=== PATIENT | female | born 1945 | race Caucasian/White ===

== ENCOUNTER 2021-09-03 12:11 | Inpatient (IN) | payer OTHER ==
[~2021-09-03] VITALS: Ht 149.9 cm; Wt 78.9 kg
[~2021-09-03 12:11] MED LIST: LISINOPRIL10 MG PO; NORCO 5-325 TA1 EACH PO; NORFLEX100 MG PO
[2021-09-03 12:31] VITALS: BP 115/68
[2021-09-03] MEDS ORDERED: MELOXICAM15 MG PO (12:38)
[2021-09-03] MEDS ORDERED: METFORMIN HCL500 MG PO (12:38)
[2021-09-03] MEDS ORDERED: COZAAR 25 MG TA25 MG PO (12:39)
[2021-09-03] MEDS ORDERED: VAZALORE81 MG PO (12:39)
[2021-09-03] MEDS ORDERED: MAGNESIUM400 M1 PO (12:40)
[2021-09-03] MEDS ORDERED: IRON18 M1 PO (12:40)
[2021-09-03] MEDS ORDERED: CALCIUM500 MG PO (12:40)
[2021-09-03] MEDS ORDERED: BIOTIN10000 MC1 PO (12:41)
[2021-09-03] MEDS ORDERED: FISH OIL 1,0001 EAC9 PO (12:41)
[2021-09-03 12:55] LABS: ABSOLUTE NEUTROPHILS 8.3 thou/uL (1.4-8.2); BASOPHILS 0.4 % (0.0-2.0); EOSINOPHILS 1.2 % (0.0-3.0); HEMOGLOBIN 11.3 gm/dL (12.0-15.0); LYMPHOCYTES 19.8 % (24.0-44.0); MCH 31.5 pg (26.0-34.0); MCHC 33.4 g/dL (28.0-37.0); MCV 94.5 fL (80.0-100.0); PLATELET COUNT 484 thou/uL (150-400); POLYS 71.6 % (36.0-66.0); RBC 3.59 mil/uL (4.20-5.00); WBC 11.6 thou/uL (4.0-11.0)
[2021-09-03 13:06] LABS: CALCIUM 9.3 mg/dL (8.5-10.1); CREATININE 2.3 mg/dL (0.6-1.0); POTASSIUM 3.6 mmol/L (3.5-5.1)
[2021-09-03 13:11] LABS: ALBUMIN 2.6 g/dL (3.4-5.0); TOTAL BILIRUBIN 0.6 mg/dL (0.2-1.0); TOTAL PROTEIN 7.8 g/dL (6.4-8.2)
[2021-09-03 16:28] LABS: % SATURATION 20 % (20-39); IRON 57 ug/dL (50-170); TIBC 283 ug/dL (250-450)
[2021-09-03 18:03] LABS: FOLIC ACID 56.7 ng/mL (8.6-58.9)
[2021-09-03 19:53] VITALS: BP 137/72
--- NOTE | 2021-09-03 23:18 | NUR ---
PT ALERT AND ORIENTED X4. VSS AFEBRILE. SAT 93% ON 3LNC. PTIS INCONTINENT OF DIARRHEA X3 SO FAR TONIGHT. HELD MIRALAX. ZGARD APPLIED TO BOTTOM. C/O LLE PAIN. MEDICATED WITH TYLENOL. PT SLEEPING PRESENTLY. NO C/O PAIN. BED DOWN CALL LIGHT IN REACH, INSTRUCTED PT ON FALL PRECAUTIONS.
[2021-09-04] VITALS: BP 130/52
[2021-09-04 04:17] LABS: ABSOLUTE NEUTROPHILS 5.5 thou/uL (1.4-8.2); BASOPHILS 1.2 % (0.0-2.0); HEMATOCRIT 28.8 % (37.0-47.0); HEMOGLOBIN 9.8 gm/dL (12.0-15.0); LYMPHOCYTES 21.4 % (24.0-44.0); MCH 32.7 pg (26.0-34.0); MCHC 34.1 g/dL (28.0-37.0); MCV 95.8 fL (80.0-100.0); MONOCYTES 6.3 % (1.0-8.0); PLATELET COUNT 429 thou/uL (150-400); POLYS 71.1 % (36.0-66.0); RBC 3.01 mil/uL (4.20-5.00); RDW 13.6 % (10.5-14.5); WBC 7.7 thou/uL (4.0-11.0)
[2021-09-04 04:32] LABS: CALCIUM 8.6 mg/dL (8.5-10.1); CREATININE 2.4 mg/dL (0.6-1.0); MAGNESIUM 2.7 mg/dL (1.8-2.4); POTASSIUM 4.4 mmol/L (3.5-5.1)
[2021-09-04 05:00] VITALS: BP 106/47
[2021-09-04 07:20] VITALS: BP 136/59
[2021-09-04 16:25] VITALS: BP 141/60
--- NOTE | 2021-09-04 17:57 | NUR ---
PT ALERT AND ORIENTED X 4. PT SPOKE WITH THIS RN ABOUT CONCERNS WITH COVID MEDICATIONS, THIS RN ALSO SPOKE WITH AND EDUCATED FAMILY VIA TELEPHONE. PT DENIES PAIN AND ANY NEEDS AT THIS MOMENT. WILL CONTINUE TO MONITOR.
[2021-09-04 19:49] VITALS: BP 152/69
--- NOTE | 2021-09-04 23:00 | NUR ---
PT PROGRESSING SLOWLY TOWARDS D/V GOALS. VSS AFEBRILE. MEDICATED WITH TYLENOL FOR PAIN TO LLE FROM PREVIOUS BACK ISSUES CAUSING SCIATIC NERVE PAIN PT STATES. PT IS NOW SLEEPING QUIETLY. NO S/S DISTRESSON 3LNC.
[2021-09-05 04:30] VITALS: BP 153/62
[2021-09-05 05:45] LABS: ABSOLUTE NEUTROPHILS 10.8 thou/uL (1.4-8.2); BASOPHILS 1.1 % (0.0-2.0); HEMATOCRIT 26.8 % (37.0-47.0); HEMOGLOBIN 9.1 gm/dL (12.0-15.0); LYMPHOCYTES 14.5 % (24.0-44.0); MCH 32.1 pg (26.0-34.0); MCHC 33.8 g/dL (28.0-37.0); MONOCYTES 6.3 % (1.0-8.0); PLATELET COUNT 448 thou/uL (150-400); POLYS 78.1 % (36.0-66.0); RBC 2.82 mil/uL (4.20-5.00); RDW 13.5 % (10.5-14.5); WBC 13.8 thou/uL (4.0-11.0)
--- NOTE | 2021-09-05 05:47 | NUR ---
PT PROGRESSING SLOWLY TOWARDS D/C GOALS. VSS. AFEBRILE THIS AM. NO S/S SOA. LUNG SOUNDS STILL DIMINISHED. ENC T,C&DB, SPUTUM SAMPLE SENT TO LAB. MRSA AND URINE CX SENT TO LAB. NO DIARRHEA TONIGHT.
[2021-09-05 05:52] LABS: INR 0.96; PROTIME 10.5 Seconds (10.5-12.1)
[2021-09-05 06:13] LABS: ANION GAP 13 mmol/L (7-16); BUN 45 mg/dL (7-18); CALCIUM 8.6 mg/dL (8.5-10.1); CHLORIDE 110 mmol/L (98-107); CO2 20 mmol/L (21-32); CREATININE 2.1 mg/dL (0.6-1.0); DIRECT BILIRUBIN < 0.1 mg/dL (<0.1-0.2); GLUCOSE 220 mg/dL (74-106); POTASSIUM 4.5 mmol/L (3.5-5.1); SGOT 22 U/L (15-37); SGPT 22 U/L (30-65); SODIUM 143 mmol/L (136-145); TOTAL BILIRUBIN 0.2 mg/dL (0.2-1.0); TOTAL PROTEIN 6.2 g/dL (6.4-8.2)
[2021-09-05 08:04] VITALS: BP 140/61
[2021-09-05 11:34] VITALS: BP 134/64
--- NOTE | 2021-09-05 14:26 | HC ---
[facility] [place] [address] CONSULTATION Name: DARRELL BRITO Room #: 353-P ADM IN M.R.#: [id number] Admission: 09/03/21 Attend Phys: Heriberto Ray MD Discharge: Date of : 49 Report #: [id number] THIS REPORT FOR: cc: Heriberto Garcia MD,Michael Mcgowan MD ~ DATE OF SERVICE: 09/04/2021 INFECTIOUS DISEASES CONSULTATION REASON FOR CONSULTATION: I was asked to evaluate concerning COVID-19 pneumonia. HISTORY OF PRESENT ILLNESS: The patient is a 76-year-old, presents to the Emergency Room after about 10-12 days of respiratory complaints, starting with a nonproductive cough, mild headache and progressive shortness of breath. COVID testing at home was positive. She was given Augmentin in the outpatient setting. Continued to have progressive shortness of breath, purulent sputum production without hemoptysis or chest pain. Mild headache with loss of taste and smell. Nausea with diarrhea. No abdominal pain, rash, or arthritis. No myositis symptoms. Presented to the Emergency Room, hypoxic, now on 4 liters of oxygen per nasal cannula. REVIEW OF SYSTEMS: A 14-point review of system was negative other than what has been described above. The patient denies any previous history of pneumonia, tuberculosis, HIV. SOCIAL HISTORY: She lives alone. She drives a school bus. PAST MEDICAL HISTORY: Hypertension, diabetes, sciatica, tonsillectomy, bladder suspension surgery. ALLERGIES: None known. MEDICATIONS: As noted on her MAR, which were reviewed. FAMILY HISTORY: Negative for tuberculosis. SOCIAL HISTORY: Nonsmoker, no significant alcohol intake. PHYSICAL EXAMINATION: GENERAL: Afebrile and hemodynamically stable. Alert and cooperative. She is on 4 liters of oxygen per nasal cannula. She was sitting up in bed. She had just recently walked to the bathroom. SKIN: Without rash or decubitus. No palpable adenopathy. [facility] [address] [place] [address] CONSULTATION Name: DARRELL BRITO Room #: 353-P [facility] IN ..#: [id number] Admission: 09/03/21 Attend Phys: Heriberto Ray MD Discharge: Date of : 49 Report #: [id number] HEENT: Eyes without scleral icterus. Mouth without mucositis. NECK: Supple with no thyromegaly or mass. No palpable adenopathy. LUNGS: Crackles in the bases bilaterally. HEART: Regular, without murmur, gallop or rub. ABDOMEN: Soft and nontender with no hepatosplenomegaly or mass. No CVA tenderness or spinal tenderness. GENITAL AND RECTAL: Exam not performed. EXTREMITIES: Without clubbing, cyanosis or edema. NEUROLOGIC: Cranial nerves intact and strength in the upper and lower extremities was symmetric and within normal limits. PSYCHIATRIC: Mood without anxiety or depression. IMPRESSION: COVID-19 pneumonia with SARS and respiratory failure, now on 4 liters of oxygen per nasal cannula. Chest x-ray shows bilateral pulmonary infiltrates. She does have elevated D-dimer and is now on anticoagulation. Comorbidities include obesity, hypertension, and diabetes. She has had purulent sputum production and may have a component of bacterial infection in addition to the COVID-19. RECOMMENDATIONS: We will continue combination of therapy with corticosteroids and antiviral therapy along with antibiotics. Obtain cultures of sputum along with urine antigens. If the patient should worsen, I discussed with her the use of Actemra. She was agreeable with this plan of care. The patient will remain on the COVID isolation unit for cardiopulmonary monitoring. We will follow serial laboratory studies in that her creatinine was 2.3. We will watch this closely along with her liver function tests as we begin remdesivir. If her creatinine shows evidence of worsening or her liver function tests increase, we will then have to adjust her program. <ELECTRONICALLY SIGNED> By: Michael Meyer MD 09/05/21 1426 [id number] Michael Meyer MD /nt
[2021-09-05 15:19] VITALS: BP 152/69
[2021-09-05 20:25] VITALS: BP 140/61
--- NOTE | 2021-09-06 00:50 | NUR ---
PT ALERT X4. VSS AFEBRILE. MEDICATED FOR LLE SCIATIC PAIN. PT FELL ASLEEP. RESPIRATIONS UNLABORED ON 3LNC. IV ABX INFUSED ORDERED. WILL CONTINUE TO MONITOR PT FOR CHANGES.
[2021-09-06 04:00] VITALS: BP 141/63
[2021-09-06 04:01] VITALS: BP 155/71
--- NOTE | 2021-09-06 04:06 | NUR ---
DISCONTINUED D51/2 NS ORDERED. D5W INFUSING AT 50 FOR 500 ML ORDERED. PRE VOID SCAN 44 , ACTUAL PT VOID 100 ML. POST VOID SCAN 0. AT 0340 THIS AM. NO C/O PAIN PRESENTLY. SA-SB ON MONITOR 40S-50S.
[2021-09-06 05:08] LABS: ANION GAP 11 mmol/L (7-16); BUN 40 mg/dL (7-18); CALCIUM 8.6 mg/dL (8.5-10.1); CHLORIDE 111 mmol/L (98-107); CO2 21 mmol/L (21-32); CREATININE 1.8 mg/dL (0.6-1.0); DIRECT BILIRUBIN < 0.1 mg/dL (<0.1-0.2); GLUCOSE 214 mg/dL (74-106); PHOSPHORUS 3.8 mg/dL (2.5-4.9); POTASSIUM 4.4 mmol/L (3.5-5.1); SGOT 19 U/L (15-37); SGPT 21 U/L (30-65); SODIUM 143 mmol/L (136-145); TOTAL BILIRUBIN 0.2 mg/dL (0.2-1.0)
[2021-09-06 05:39] LABS: HEMATOCRIT 26.8 % (37.0-47.0); HEMOGLOBIN 9.3 gm/dL (12.0-15.0); MCHC 34.8 g/dL (28.0-37.0); MCV 94.7 fL (80.0-100.0); PLATELET COUNT 472 thou/uL (150-400); RBC 2.83 mil/uL (4.20-5.00); RDW 13.6 % (10.5-14.5); WBC 12.7 thou/uL (4.0-11.0)
[2021-09-06 06:08] LABS: MAGNESIUM 2.3 mg/dL (1.8-2.4); PHOSPHORUS 4.1 mg/dL (2.5-4.9)
[2021-09-06 06:41] LABS: URINE BILIRUBIN NEGATIVE (Negative); URINE BLOOD NEGATIVE (Negative); URINE CLARITY CLEAR; URINE COLOR YELLOW; URINE GLUCOSE-RANDOM* TRACE (Negative); URINE KETONES NEGATIVE (Negative); URINE LEUKOCYTES-REFLEX NEGATIVE (Negative); URINE NITRITE-REFLEX NEGATIVE (Negative); URINE PROTEIN (DIPSTICK) TRACE (Negative); URINE UROBILINOGEN 0.2 E.U./dl (0.2-1.0)
[2021-09-06 07:31] VITALS: BP 156/63
[2021-09-06 08:06] LABS: HIV ANTIBODY Non Reactive (Non Reactive)
[2021-09-06 11:24] VITALS: BP 153/78
[2021-09-06 13:10] LABS: ABSOLUTE NEUTROPHILS 10.3 thou/uL (1.4-8.2); METAMYELOCYTES 1 %; MYELOCYTES 1 %
[2021-09-06 13:11] LABS: ANISOCYTOSIS SLIGHT
[2021-09-06 16:36] VITALS: BP 139/65
--- NOTE | 2021-09-06 18:44 | NUR ---
PROGRESSING TOWARDS POC GOALS. AMBULATED IN ROOM.
[2021-09-06 20:45] VITALS: BP 154/72
[2021-09-07] VITALS: BP 161/69
[2021-09-07 03:25] LABS: HEMATOCRIT 27.7 % (37.0-47.0); HEMOGLOBIN 9.6 gm/dL (12.0-15.0); MCH 32.6 pg (26.0-34.0); MCHC 34.7 g/dL (28.0-37.0); MCV 93.9 fL (80.0-100.0); PLATELET COUNT 501 thou/uL (150-400); RBC 2.95 mil/uL (4.20-5.00); RDW 13.4 % (10.5-14.5); WBC 13.6 thou/uL (4.0-11.0)
[2021-09-07 04:36] VITALS: BP 146/64
[2021-09-07 04:40] LABS: ANION GAP 12 mmol/L (7-16); BUN 36 mg/dL (7-18); CALCIUM 8.4 mg/dL (8.5-10.1); CHLORIDE 108 mmol/L (98-107); CO2 21 mmol/L (21-32); CREATININE 1.6 mg/dL (0.6-1.0); DIRECT BILIRUBIN < 0.1 mg/dL (<0.1-0.2); GLUCOSE 223 mg/dL (74-106); PHOSPHORUS 3.6 mg/dL (2.5-4.9); POTASSIUM 4.4 mmol/L (3.5-5.1); SGOT 28 U/L (15-37); SGPT 27 U/L (30-65); SODIUM 141 mmol/L (136-145); TOTAL BILIRUBIN 0.3 mg/dL (0.2-1.0); TOTAL PROTEIN 5.9 g/dL (6.4-8.2)
[2021-09-07 07:40] VITALS: BP 156/60
[2021-09-07 10:11] LABS: ABSOLUTE NEUTROPHILS 11.3 thou/uL (1.4-8.2); ATYPICAL LYMPHS 2 %
[2021-09-07 10:14] LABS: ANISOCYTOSIS SLIGHT; POIKILOCYTOSIS SLIGHT
[2021-09-07 10:55] VITALS: BP 160/69
[2021-09-07 15:05] VITALS: BP 152/73
--- NOTE | 2021-09-07 15:16 | NUR ---
INITIAL ASSESSMENT: SW reviewed chart and spoke with nursing and attending physician. Pt was admitted from home due to COVID. Pt placed in Enhanced Isolation. Pt had not received a COVID vaccination. Pt is afebrile and on 3L of O2. Pt is on IV abx and IV steorids. Remdesivir started. Discharge home is anticipated later in the week. SW spoke with pt via phone. Introduced role of SW. Pt is alert/orientated. Pt states she lives at home alone. There are 2 steps to enter and no steps inside. Prior to admission, pt was using a walker. No hx of HH or post-acute placement. Pt's PCP is Dr. Heriberto Garcia. Pt is agreeable with HH and/or home O2 if needed. SW is following to assist as needed with discharge planning.
[2021-09-07 19:21] VITALS: BP 149/83
--- NOTE | 2021-09-07 19:31 | NUR ---
RN ASSUMED PT'S CARE AT 0700AM-1900PM, PT IS A&OX4, PT IS ON O2 4L/MIN/NC, PT'S O2SAT STAY AT 93-96%, PT HAS SOB WITH ACITIVES, PT IS CONTINUING IV ABX AND TREAT COVID MEDICATIONS.
[2021-09-08 04:29] VITALS: BP 156/62
--- NOTE | 2021-09-08 04:37 | NUR ---
PROGRESS PT A/O X4. UP WITH SBA TO BSC. ON 4 LITERS O2 SATS. REMDESIVIR ADMINISTERED ORDERED. IV LEAKING AND NEW ONE STARTED IN RIGHT HAND. LUNGS WITH SOME COARSE CRACKLES IN RLL REMAINING LUNG ARTHUR ARE DIMINISHED PT REPORTS A MORE PRODUCTIVE COUGH. SPOKE WITH DAUGHTER AND PT AND REVIEWED MEDS AND LABS AND WHAT TO EXPECT THROUGH THIS HOSPITAL STAY, BOTH R/V UNDERSTANDING. CONTINUE POC.
[2021-09-08 06:36] LABS: HEMATOCRIT 30.7 % (37.0-47.0); HEMOGLOBIN 10.4 gm/dL (12.0-15.0); MCH 31.8 pg (26.0-34.0); MCHC 33.9 g/dL (28.0-37.0); MCV 93.7 fL (80.0-100.0); PLATELET COUNT 539 thou/uL (150-400); RBC 3.28 mil/uL (4.20-5.00); RDW 13.5 % (10.5-14.5); WBC 14.3 thou/uL (4.0-11.0)
[2021-09-08 07:07] LABS: ALBUMIN 2.2 g/dL (3.4-5.0); ANION GAP 10 mmol/L (7-16); BUN 41 mg/dL (7-18); CHLORIDE 108 mmol/L (98-107); CO2 26 mmol/L (21-32); CREATININE 1.8 mg/dL (0.6-1.0); DIRECT BILIRUBIN < 0.1 mg/dL (<0.1-0.2); GLUCOSE 192 mg/dL (74-106); PHOSPHORUS 3.8 mg/dL (2.5-4.9); POTASSIUM 4.9 mmol/L (3.5-5.1); SGOT 20 U/L (15-37); SGPT 35 U/L (30-65); SODIUM 144 mmol/L (136-145); TOTAL BILIRUBIN 0.3 mg/dL (0.2-1.0); TOTAL PROTEIN 6.5 g/dL (6.4-8.2)
[2021-09-08 08:08] VITALS: BP 150/80
[2021-09-08 11:12] VITALS: BP 144/63
[2021-09-08 11:23] LABS: ANISOCYTOSIS 1+; METAMYELOCYTES 1 %
[2021-09-08 13:00] LABS: T-SPOT.TB Negative
[2021-09-08 15:19] VITALS: BP 147/81
[2021-09-08 19:50] VITALS: BP 133/78
--- NOTE | 2021-09-08 19:51 | NUR ---
RN ASSUMED PT'S CARE AT 0700-1900PM, PT IS A&OX4, PT IS ON O2 4L/MIN/NC, PT'S VS ARE STABLE AT DAY SHIFT, BUT PT STILL HAS SOB WITH ACTIVITIES, PT IS CONTINUING IV ABX AND TREAT COVID MEDICATIONS.
[2021-09-09 04:00] VITALS: BP 130/71
[2021-09-09 06:56] LABS: ALBUMIN 2.4 g/dL (3.4-5.0); ANION GAP 12 mmol/L (7-16); BUN 45 mg/dL (7-18); CALCIUM 8.9 mg/dL (8.5-10.1); CHLORIDE 104 mmol/L (98-107); CO2 26 mmol/L (21-32); CREATININE 1.7 mg/dL (0.6-1.0); DIRECT BILIRUBIN < 0.1 mg/dL (<0.1-0.2); GLUCOSE 201 mg/dL (74-106); PHOSPHORUS 4.4 mg/dL (2.5-4.9); POTASSIUM 4.3 mmol/L (3.5-5.1); SGOT 18 U/L (15-37); SGPT 30 U/L (30-65); SODIUM 142 mmol/L (136-145); TOTAL BILIRUBIN 0.3 mg/dL (0.2-1.0); TOTAL PROTEIN 6.7 g/dL (6.4-8.2)
[2021-09-09 07:35] VITALS: BP 142/78
--- NOTE | 2021-09-09 07:54 | NUR ---
PROGRESS PT A/O X4, UP AD JUSTIN TO BSC. VSS, TELEMETRY INTACT READING SR INTERMITTENT ABT'S GIVEN ORDERED. REMAINS ON 4 LITERS O2 SOB WITH ACTIVITY. 2ND ROUND OF REMDESIVIR TO START TONIGHT CONTINUE TO MONITOR.
[2021-09-09 11:30] VITALS: BP 146/88
--- NOTE | 2021-09-09 12:02 | NUR ---
HARRY reviewed chart and spoke with nursing and attending physician. Pt remains in Enhanced Isolation due to COVID. Pt is afebrile and on 4L of O2. Pt is on IV steroids. Pt has completed course of Remdesivir. HARRY spoke with pt via phone to discuss discharge plan. Pt states she does not feel ready to discharge home today. HARRY discussed recommendation for services and possible home O2 at time of discharge. Pt is agreeable with HH referral. Options provided. No preference voiced. HARRY confirmed pt's home address and phone number. HARRY notified [facility] liaison of referral. Discharge home is anticipated for tomorrow. [facility] is able to accept pt on service. HARRY faxed referral to [facility] for possible home O2. HARRY discussed with attending physician. Requested rest/exercise oximetry to be ordered to assess pt for home O2. Pt will need transportation home. HARRY is following to assist as needed with discharge planning.
[2021-09-09 15:40] VITALS: BP 155/78
--- NOTE | 2021-09-09 19:26 | NUR ---
ASSUMED PATIENT CARE AT 0700. A/O X4. ON 4L/NC. TOLERATED WELL. AMBULATED IN ROOM. RECHECK CXR AND VQ SCAN WHICH NO PE. PATIENT ABLE TO PRONE BY HER SELF. PROGRESSING TOWARDS POC GOALS.
[2021-09-09 20:21] VITALS: BP 133/69
--- NOTE | 2021-09-10 04:10 | NUR ---
PROGRESS PT A/O X4, UP AD JUSTIN TO C. LUNGS DIMINISHED NO COUGH NOTED. REMAINS ON 4 LITERS O2 DESATTED WITH PT/OT TODAY O2 NEEDS WENT UP TO 6 TO 8 LITERS WHILE AMBULATING. REPORTS PAIN TO RIGHT LEG FROM SPINAL STENOSIS HYDROCODONE GIVEN WITH EFFECT.PLAN IS TO INCREASE ACTIVITY, TITRATE O2 TOLERATED. CONTINUE POC.
[2021-09-10 05:09] VITALS: BP 149/48
[2021-09-10 07:42] VITALS: BP 146/86
--- NOTE | 2021-09-10 08:34 | NUR ---
Assess due to length of stay. admitted with COVID+. Hx DM and pt with hyperglycemia, BG >200, likely aggravated further with steroids. Glargine has been added. Also not on carb control diet so will add this. Intake fair to good 50-100%. No wt loss. Likely dc soon, SNF recommendations per chart review. Low nutrition risk.
[2021-09-10 11:30] VITALS: BP 143/68
--- NOTE | 2021-09-10 14:52 | NUR ---
TOOK OVER CARE OF THIS PATIENT AT 0700. PATIENT RESTING IN BED DURING REPORT. PATIENT WEARING 4 L OXYGEN VIA NASAL CANNULA. PATIENT AXOXO4. PATIENT BECOMES SOA WITH EXERTION; PT REPORTED TURNING UP O2 TO 6-[address] AMARO WANTED THIS NURSE TO PAGE DR. HERNANDEZ REGARDING PULMONARY FUNCTIONING AND CARE OF THIS PATIENT. DR. HERNANDEZ REPORTED THAT PATIENT DOESN'T APPEAR TO BE GETTING WORSE AND RESTS COMFORTABLY; HE STATED "IT WILL TAKE TIME." PATIENT COMPLAINT OF PAIN; ADMIN PRN PAIN MEDICATION. WILL CONTINUE TO MONITOR. FALL PRECAUTIONS IN PLACE AND CALL LIGHT KATHYSUAD REACH.
--- NOTE | 2021-09-10 15:08 | NUR ---
SW reviewed chart and spoke with nursing and attending physician. Pt remains in Enhanced Isolation due to COVID. Pt is afebrile and on 4-5L of O2. Pt is on IV steroids. No weekend discharge planned. Pt does not meet admission criteria for [facility]. Recommendation made for pt to consider SNF placement. Will need insurance authorization. HARRY placed calls to pt's room. No answer. SW left in-network SNF with nursing for pt to review. Pt to notify SW of SNF preference. HARRY is following to assist as needed with discharge planning.
[2021-09-10 15:16] VITALS: BP 165/72
[2021-09-10 19:31] VITALS: BP 148/76
--- NOTE | 2021-09-11 03:01 | NUR ---
PT ALERT AND ORIENTED X4. VSS AFEBRILE. C/O BACK PAIN. MEDIATED WITH 1 HYDROCODONE. PT HAS BEEN SLEEPIJN QUIETLY WITHOUT C/O AFTER PAIN MEDS GIVEN. NEW SL PLACED RIGHT FA . DUE TO RIGHT HAND IV INFILTRATED AND WAS PARTIALLY HANGING OUT. PT UNLABORED ON 4LNC. BS DIMINISHED. NO S/S DISTRESS, REMDESIVIR RESUMED ORDERED.
[2021-09-11 04:18] VITALS: BP 144/72
[2021-09-11 06:20] LABS: ABSOLUTE NEUTROPHILS 20.9 thou/uL (1.4-8.2); BASOPHILS 0.6 % (0.0-2.0); HEMATOCRIT 32.2 % (37.0-47.0); HEMOGLOBIN 10.7 gm/dL (12.0-15.0); LYMPHOCYTES 7.2 % (24.0-44.0); MCH 31.1 pg (26.0-34.0); MONOCYTES 4.6 % (1.0-8.0); PLATELET COUNT 546 thou/uL (150-400); POLYS 87.6 % (36.0-66.0); RBC 3.43 mil/uL (4.20-5.00); RDW 13.3 % (10.5-14.5); WBC 23.8 thou/uL (4.0-11.0)
[2021-09-11 06:51] LABS: ALBUMIN 2.5 g/dL (3.4-5.0); CALCIUM 9.2 mg/dL (8.5-10.1); CREATININE 1.6 mg/dL (0.6-1.0); TOTAL BILIRUBIN 0.4 mg/dL (0.2-1.0); TOTAL PROTEIN 5.8 g/dL (6.4-8.2)
[2021-09-11 07:54] VITALS: BP 156/88
[2021-09-11 11:39] VITALS: BP 179/85
[2021-09-11 15:55] VITALS: BP 165/83
--- NOTE | 2021-09-11 18:33 | NUR ---
TITRATED O2 TO 2L/NC. TOLERTAED WELL. PROGRESSING TOWARD POC GOALS.
[2021-09-11 19:46] VITALS: BP 150/84
[2021-09-12 02:14] LABS: URINE BILIRUBIN NEGATIVE (Negative); URINE BLOOD NEGATIVE (Negative); URINE CLARITY CLEAR; URINE COLOR YELLOW; URINE GLUCOSE-RANDOM* NEGATIVE (Negative); URINE KETONES NEGATIVE (Negative); URINE LEUKOCYTES-REFLEX NEGATIVE (Negative); URINE NITRITE-REFLEX NEGATIVE (Negative); URINE PROTEIN (DIPSTICK) NEGATIVE (Negative); URINE SPECIFIC GRAVITY 1.015 (1.005-1.035); URINE UROBILINOGEN 0.2 E.U./dl (0.2-1.0)
[2021-09-12 04:38] VITALS: BP 149/76
[2021-09-12 05:24] LABS: HEMATOCRIT 31.2 % (37.0-47.0); HEMOGLOBIN 10.5 gm/dL (12.0-15.0); MCH 31.7 pg (26.0-34.0); MCHC 33.7 g/dL (28.0-37.0); MCV 94.1 fL (80.0-100.0); RBC 3.32 mil/uL (4.20-5.00); RDW 13.6 % (10.5-14.5); WBC 18.7 thou/uL (4.0-11.0)
[2021-09-12 05:27] LABS: ALBUMIN 2.3 g/dL (3.4-5.0); CALCIUM 9.1 mg/dL (8.5-10.1); CREATININE 1.7 mg/dL (0.6-1.0); POTASSIUM 4.3 mmol/L (3.5-5.1); TOTAL BILIRUBIN 0.4 mg/dL (0.2-1.0); TOTAL PROTEIN 5.9 g/dL (6.4-8.2)
[2021-09-12 05:33] LABS: PLATELET COUNT 455 thou/uL (150-400)
--- NOTE | 2021-09-12 07:43 | NUR ---
Patient making slow progress towards outcome goals. Vital signs and rhythm stable. Up to BSC without difficulty. Oxygenation optimal with 2L/NC. Hydrocodone give for pain with partial relief. UA collected and sent, negative. One time Lasix dose given.
[2021-09-12 07:51] VITALS: BP 164/99
[2021-09-12 08:36] LABS: ABSOLUTE NEUTROPHILS 16.5 thou/uL (1.4-8.2); METAMYELOCYTES 2 %
[2021-09-12 08:37] LABS: ANISOCYTOSIS 1+
[2021-09-12 11:31] VITALS: BP 141/77
[2021-09-12 16:15] VITALS: BP 145/94
--- NOTE | 2021-09-12 18:24 | NUR ---
ON 2L/NC. AMBULATED IN ROOM. PROGRESSING TOWARDS POC GOALS.
[2021-09-12 19:03] VITALS: BP 154/99
[2021-09-13 04:36] VITALS: BP 151/81
--- NOTE | 2021-09-13 05:59 | NUR ---
Patient making some progress towards outcome goals. Vital signs and rhythm stable. Oxygenation optimal with 2L/NC. Increasing activity out of bed, ambulating in room. Up to BR/toilet without difficulty.
[2021-09-13 08:17] VITALS: BP 167/97
--- NOTE | 2021-09-13 12:48 | NUR ---
SPOKE WITH PATIENTS RN, RN STATES THAT PATIENT NOT GOING HOME TODAY, WILL HOLD WALKING OXIMETRY UNTIL CLOSER TO DISCHARGE DATE
[2021-09-13 16:59] VITALS: BP 154/76
--- NOTE | 2021-09-13 17:11 | NUR ---
HARRY reviewed chart and spoke with nursing and attending physician. Pt remains in Enhanced Isolation due to COVID. Pt is afebrile and currently on 6L of O2. Pt is on IV meds. Pt had to be on 10L with therapy earlier today. HARRY spoke with pt via phone to discuss discharge plan. Pt is agreeable with plan to go to post-acute care for continued rehab services. SW reviewed in-network SNF options with pt. Pt states she lives in [place]. Pt asked HARRY to contact her dtr, Nu, to discuss. HARRY spoke with Nu via phone. Emailed in-network SNF list for review. Will need insurance authorization for post-acute placement. HARRY is following to assist as needed with discharge planning.
[2021-09-13 19:50] VITALS: BP 153/96
[2021-09-14 04:20] VITALS: BP 148/88
[2021-09-14 04:20] LABS: ALBUMIN 2.3 g/dL (3.4-5.0); ANION GAP 9 mmol/L (7-16); BUN 59 mg/dL (7-18); CHLORIDE 105 mmol/L (98-107); CO2 25 mmol/L (21-32); CREATININE 1.6 mg/dL (0.6-1.0); DIRECT BILIRUBIN < 0.1 mg/dL (<0.1-0.2); GLUCOSE 129 mg/dL (74-106); PHOSPHORUS 3.8 mg/dL (2.6-4.7); POTASSIUM 4.4 mmol/L (3.5-5.1); SGOT 14 U/L (15-37); SGPT 30 U/L (14-59); SODIUM 139 mmol/L (136-145); TOTAL BILIRUBIN 0.5 mg/dL (0.2-1.0); TOTAL PROTEIN 5.7 g/dL (6.4-8.2)
[2021-09-14 07:49] VITALS: BP 159/79; BP 159/798
--- NOTE | 2021-09-14 08:24 | NUR ---
Pt. stated she slept fair during the night. O2 at 6L at shift change then was able to titrate down to 4L this am around 0600. Cont. on enhanced precaution , afebrile.
[2021-09-14 14:48] LABS: HEMATOCRIT 37.1 % (37.0-47.0); HEMOGLOBIN 12.1 gm/dL (12.0-15.0); MCH 30.9 pg (26.0-34.0); MCHC 32.5 g/dL (28.0-37.0); RBC 3.91 mil/uL (4.20-5.00); RDW 13.9 % (10.5-14.5); WBC 22.2 thou/uL (4.0-11.0)
[2021-09-14 15:01] LABS: APTT 23.8 Seconds (24.5-32.8); INR 1.02; PROTIME 11.1 Seconds (10.5-12.1)
[2021-09-14 15:26] VITALS: BP 155/80
--- NOTE | 2021-09-14 16:33 | NUR ---
HARRY reviewed chart and spoke with nursing and attending physician. Pt remains in Enhanced Isolation due to COVID. PT is afebrile and on 4L of O2. Pt is on IV steroids and Remdesivir. Pt needed 8L with activity. HARRY placed call to pt's room. No answer. HARRY followed up with pt's dtr, Nu, to discuss SNF options. Awaiting input from pt and family regarding SNF preference. Will need insurance auth. HARRY office phone number provided to pt's dtr. Pt may be medically stable for discharge to SNF later in the week. HARRY is following to assist as needed with discharge planning.
--- NOTE | 2021-09-14 16:50 | NUR ---
PATIENT IS ALERT AND ORIENTED X4 THIS SHIFT. SHE HAS DIMINISHED BREATH SOUNDS WHEN LUNGS ARE AUSCULTATED. PATIENT IS ON 4L OF OXYGEN AT THIS TIME. PATIENT THIS SHIFT HAD TO BE BUMPED TO 8L OF OXYGEN WHILE WORKING WITH PHYSICAL THERAPY BUT WAS ABLE TO BE TITRATED BACK DOWN TO 4L'S. PATIENT IS MS/ TELE AND HAS BEEN SINUS RHYTHM THIS SHIFT. PAITENT HAS BEEN CONTINENT OF BOTH BOWEL AND BLADDER THIS SHIFT. PATIENT IS TRANSFERRED WITH ONE ASSIST TO THE COMMODE OR THE RECLINER. PATIENT HAS AN IV IN HER RIGHT FOREARM THAT CURRENTLY HAS HEPARIN RUNNING AT 12.7 ML'S/ HOUR PATIENT HEPARIN BOLUS AT 6.7 ML'S WAS GIVEN PER ORDER. PATIENTS APTT WAS 23.8 AND NEXT APTT IS SCHEDULED FOR 2229. PATIENT WILL CONTINUE TO BE MONITORED.
[2021-09-14 19:31] VITALS: BP 176/96
[2021-09-14 22:26] VITALS: BP 173/77
--- NOTE | 2021-09-15 05:06 | NUR ---
Requested pain med for back pain with some relief. O2 at 4L/NC and maintaining O2 sat > 90% She does get short of breath with exertion. Cont. on enhanced precaution ,afebrile. Heparin gtt. infusing and titrated per standing order. No bleeding noted. New IV on right AC placed last night and last dose of remdesivir given.
[2021-09-15 05:14] VITALS: BP 153/64
[2021-09-15 08:06] VITALS: BP 150/83
[2021-09-15 11:54] VITALS: BP 121/76
--- NOTE | 2021-09-15 16:05 | NUR ---
CASE DISCUSSED WITH CARE TEAM. PT ON HEPARIN DRIP FOR RULE OUT PE DUE TO INCREASED O2 NEEDS WITH ACTIVITY. PT AND DAUGHTER DISCUSSING SKILLED LIST SHE WILL NEED SHORT STAY AT DISCHARGE SHE LIVES ALONE. CLINICAL UPDATE PROVIDED. DAUGHTER TO CALL BACK WITH SNF PREFERENCES EITHER IN [facility] OR CLOSE TO HOSPITAL LATER TODAY. WILL PREP SKILLED REFERRAL. OT VARIENCE DUE TO HEPARIN. WILL NEED INSURANCE AUTH.
--- NOTE | 2021-09-15 16:12 | NUR ---
Spoke with daughter Marta at [phone] who had questions regarding discharge planning. Marta has worked with therapy in her professional role and understood Acute criteria verses skilled criteria. Notified of increase 02 demands and that as [facility] will follow there may be a distinct possibility for skilled rehab. Did receive Skilled list sent to her by previously and notified that CM will follow and keep in touch with therapy recommendations regarding discharge needs. Did speak with 5 team who will continue to follow but also notes increased 02 demands and IV anticoagulation. Daughter will continue to follow with CM for discharge needs.
[2021-09-15 16:36] VITALS: BP 150/87
--- NOTE | 2021-09-15 18:11 | NUR ---
PATIENT IS ALERT AND ORIENTED X4. SHE IS AWARE OF HER LIMITATIONS. PATIENT HAS DIMINISHED LUNGS SOUNDS AND IS ON 4L OF OXYGEN VIA HIGH FLOW NASAL CANULA AT REST. WHEN PATIENT IS UP MOVING HER OXYGEN LEVELS HAVE TO BE BUMPED TO 6-8L'S OF OXYGEN. PATIENT HAS BEEN CONTINENT OF BOTH BOWEL AND BLADDER THIS SHIFT. PER PT. PATIENT IS TO GET UP AND WALK TO AND FROM THE BATHROOM. PATIENT HAS TOLERATED THIS WELL THIS SHIFT. SHE HAS ALSO REQUESTED MULTIPLE TIMES TO WALK TO AND FROM THE WINDOW TO HER BED ROOM DOOR. PATIENTS PULSE ELEVATED DURING THESE WALKS BUT SHE TOLERATED IT WELL. PATIENT CONTINUES TO HAVE NO SKIN ISSUES. PATIENTS APTT WAS 60.6. PATIENT WILL CONTINUE ON WITH CURRENT HEPARIN DOSING NEXT APTT IS SCHEDULED TO BE DRAWN AT 2300. PATIENT AT THE BEGINNING OF THIS SHIFT HAS TWO IV'S ONE IN HER RIGHT AC AND ONE IN HER RIGHT FOREARM WHERE THE HEPARIN DRIP IS RUNNING. IV IN HER RIGHT AC HAS BEEN DISCONTINUED DUE TO INFILTRATION. PATIENTS FOREARM IV IS PATENT. PATIENT CONTINUES ON ENCHACED PRECAUTIONS. PATIENT WILL CONTINUE TO BE MONITORED.
[2021-09-15 19:19] VITALS: BP 141/89
--- NOTE | 2021-09-16 04:21 | NUR ---
maintaining her o2 sat in the mid 90's, on 4 liters. continues on heparin gtt. denies pain. no discarge concerns voiced.
[2021-09-16 04:28] VITALS: BP 172/91
[2021-09-16 07:19] VITALS: BP 150/88
[2021-09-16 09:07] LABS: HEMATOCRIT 34.2 % (37.0-47.0); HEMOGLOBIN 11.2 gm/dL (12.0-15.0); MCH 31.5 pg (26.0-34.0); MCHC 32.8 g/dL (28.0-37.0); RBC 3.57 mil/uL (4.20-5.00); RDW 14.3 % (10.5-14.5); WBC 23.3 thou/uL (4.0-11.0)
[2021-09-16 09:09] LABS: CREATININE 1.8 mg/dL (0.6-1.0); POTASSIUM 4.5 mmol/L (3.5-5.1)
[2021-09-16 09:11] LABS: PLATELET COUNT 328 thou/uL (150-400)
[2021-09-16 10:27] LABS: ABSOLUTE NEUTROPHILS 20.5 thou/uL (1.4-8.2); NUCLEATED RBCS 1 /100WBC; PLATELET ESTIMATE NORMAL
--- NOTE | 2021-09-16 12:43 | NUR ---
PATIENT HAS BEEN ACCEPTED FOR ACUTE REHAB PENDING AUTHORIZATION FROM [facility]. AUTHORIZATION REQUEST MADE THIS DATE AND CLINICAL INFORMATION SENT. [facility] PHOTO RETOUCHER INFORMED OF ABOVE. THANK YOU FOR THIS REFERRAL.
--- NOTE | 2021-09-16 15:46 | 2DMMODE ---
[address] [address] D/M-MODE ECHOCARDIOGRAM Name: DARRELL BRITO Room #: 353-P ADM IN M.R.#: [id number] Admission: 09/03/21 Attend Phys: Heriberto Ray MD Discharge: Date of : 49 Report #: [id number] THIS REPORT FOR: cc: Heriberto Garcia MD, Jin S. MD ~ APPROVED REPORT Study performed: 09/16/2021 14:53:25 EXAM: Comprehensive 2D, Doppler, and color-flow Echocardiogram Patient Location: Bedside Room #: 353 Status: routine BSA: 1.79 HR: 95 bpm BP: 150/88 mmHg Rhythm: NSR Other Information Study Quality: Technically Limited Indications CVA/TIA Diabetes Covid 19 Echo Enhancing Agent Indication: Rule out Shunt Agent(s) / Amount(s) Used: Agitated Saline 7 cc Tricuspid Valve TR Peak Jesse.: 2.54 m/s TR Peak Gr.: 25.81 mmHg PA Pressure: 30.00 mmHg Left Ventricle The left ventricle is normal size. There is normal LV segmental wall motion. Mild concentric left ventricular hypertrophy. Left ventricular systolic function is hyperdynamic. LVEF is 65-70%. Right Ventricle The right ventricle is normal size. The right ventricular systolic function is normal. [address] [address] 2 D/M-MODE ECHOCARDIOGRAM Name: DARRELL BRITO Room #: 353-P ADM IN M.R.#: [id number] Admission: 09/03/21 Attend Phys: Heriberto Ray MD Discharge: Date of : 49 Report #: [id number] [employer] The left atrium size is normal. Injection of bubbles documented no interatrial shunt. The right atrium size is normal. Aortic Valve The aortic valve is normal in structure. No aortic regurgitation is present. There is no aortic valvular stenosis. Mitral Valve The mitral valve is normal in structure. There is no mitral valve regurgitation noted. No evidence of mitral valve stenosis. Tricuspid Valve The tricuspid valve is normal in structure. There is trace tricuspid regurgitation. Estimated PAP 30 mmHg. Pulmonic Valve The pulmonary valve is normal in structure. Great Vessels The aortic root is normal in size. IVC is normal in size and collapses >50% with inspiration. Pericardium There is no pericardial effusion. <Conclusion> The left ventricle is normal size. Mild concentric left ventricular hypertrophy. Left ventricular systolic function is hyperdynamic. The right ventricle is normal size. The left atrium size is normal. Injection of bubbles documented no interatrial shunt. The aortic valve is normal in structure. There is no mitral valve regurgitation noted. There is trace tricuspid regurgitation. Estimated PAP 30 mmHg. <ELECTRONICALLY SIGNED> By: Chacho Ngo MD 09/16/21 1545 1545 1545 Chacho Ngo MD /RUBEN
[2021-09-16 16:27] VITALS: BP 123/70
--- NOTE | 2021-09-16 16:54 | NUR ---
Pt's dtr rufina called back and indicates pt is open to snf in [place] but prefers [facility] acute rehab if possible. [facility] rehab consult in progress. Pt still needing 6-8liters of o2 with activity. Checking to see if ISO can be dc'd as pt was initially tested covid+ the week of . Remains on heprin gtt. Will f/u with the care team regarding rehab/or snf recommendations.
--- NOTE | 2021-09-16 18:34 | NUR ---
PT IS SLOWLY PROGRESSING TOWARDS CARE. CURRENTLY ON 3L OXYGEN, NEED 7L WITH ACTIVITY. UP WITH 1 ASSIST TO THE BATHROOM WITH A WALKER. DENIES CHEST PAIN. HYDROCODONE GIVEN FOR BACK PAIN. NEEDS ANY NEEDS FRANCO, WILL CONTINUE TO MONITOR.
[2021-09-16 19:20] VITALS: BP 163/86
[2021-09-17 03:29] VITALS: BP 144/66
--- NOTE | 2021-09-17 06:19 | NUR ---
titrated down to 1 liter n/c. she has been resting quietly tonight. denies concerns. heparin adjusted per protocal
[2021-09-17 07:43] VITALS: BP 144/84
--- NOTE | 2021-09-17 08:25 | NUR ---
Followup: remains hospitalized for COVID treatment. Eating well, 75-100% of meals and wts are stable. BG still elevated with steroids and hx DM, remains on insulin protocol. Continue carb control diet. [facility] chidi in progress. Low nutrition risk
[2021-09-17 09:21] LABS: HEMATOCRIT 34.1 % (37.0-47.0); HEMOGLOBIN 11.4 gm/dL (12.0-15.0); MCH 32.1 pg (26.0-34.0); MCHC 33.4 g/dL (28.0-37.0); RBC 3.55 mil/uL (4.20-5.00); RDW 14.3 % (10.5-14.5); WBC 23.9 thou/uL (4.0-11.0)
[2021-09-17 09:29] LABS: CREATININE 1.6 mg/dL (0.6-1.0); POTASSIUM 3.5 mmol/L (3.5-5.1)
--- NOTE | 2021-09-17 11:59 | NUR ---
Case discussed with the care team. No weekend dc anticipated. [facility] acute rehab has accepted and ins auth is pending. Pt still needing 8-10liters of o2 with any activity. Dtr aware of above and both she and pt are hoping that ins will approve an acute rehab stay. Pt was not on home o2 prior to admit and lives alone. SNF/HH referrals on hold pending ins response.
[2021-09-17 15:31] VITALS: BP 141/73
--- NOTE | 2021-09-17 17:53 | NUR ---
ASSUMED PATIENT CARE AT 0700. A/O X4. ON 2L RESTTING. WALKING 10L/NC. NOT TOWARDS POC GOALS.
--- NOTE | 2021-09-17 19:30 | NUR ---
PATIENT ADMIT TO UNIT AT 1830. NONE MAKAYLA. VSS. BED ARLRM ON. KEEP MONITOR.
[2021-09-17 20:12] VITALS: BP 124/61
[2021-09-18 04:04] VITALS: BP 145/76
--- NOTE | 2021-09-18 05:50 | NUR ---
PT IS SLOWLY PROGRESSING TOWARD GOAL OF DISCHARGE. PT IS A&OX4 AND ABLE TO COMMUNICATE ALL WANTS AND NEEDS TO STAFF. PT UTILIZES CALL LIGHT APPROPRIATELY WHEN NEEDING TO USE BATHROOM, TRANSFERS AND AMBULATES WITH SBA USING WALKER, GAIT IS STEADY. PT DOES DESAT WHILE AMBULATING. O2 INCREASED TO 10L DURING AMBULATION AND FOR A FEW MINUTES AFTER RETURNING TO BED TO RECOVER SATS. AT REST, PT ONLY REQUIRING 2L/NC. PT HAD C/O BILATERAL ANKLE PAIN THIS SHIFT, WAS MEDICATED X1 WITH NORCO WITH SOME EFFECT. WILL CONTINUE TO OBSERVE FOR CHANGES.
[2021-09-18 07:16] VITALS: BP 157/88
[2021-09-18 15:21] VITALS: BP 145/80
--- NOTE | 2021-09-18 16:15 | NUR ---
patient assesments completed. PATIENT VERY FLAT AFFECT TODAY. PT VISITED. O2 STILL AT 3-4 L
[2021-09-18 20:10] VITALS: BP 163/83
--- NOTE | 2021-09-19 04:27 | NUR ---
PT SLOWLY PROGRESSING TOWARD GOAL OF DISCHAGE. A&OX4 AND ABLE TO COMMUNICATE WANTS AND NEEDS APPROPRIATELY. UP TO BR WITH WALKER AND SBA, CONTINUES TO REQUIRE INCREASED O2 WHILE AMBULATING. HAS BEEN STABLE ON 3L/NC WHILE AT REST, SATS >95%. PT HAS SLEPT BETTER TONIGHT THAN LAST NIGHT. WILL CONTINUE TO OBSERVE FOR CHANGES
[2021-09-19 04:30] VITALS: BP 139/77
[2021-09-19 05:38] LABS: ALBUMIN 2.2 g/dL (3.4-5.0); CALCIUM 8.7 mg/dL (8.5-10.1); CREATININE 1.4 mg/dL (0.6-1.0); PHOSPHORUS 3.2 mg/dL (2.5-4.9)
[2021-09-19 07:44] VITALS: BP 164/78
--- NOTE | 2021-09-19 09:53 | NUR ---
RECEIVED CALL FROM [employer] REGARDING OFFER OF PEER TO PEER WITH MD OR CORRUGATOR, STATUS OF REQUEST REMAINS PENDING AND IS DEPENDENT ON PEER TO PEER REVIEW. CORRUGATOR NOTIFIED TO CALL [phone] [facility]. NO APPT NEEDED. DEADLINE IS NO09/20 ELECTRICAL EQUIPMENT TECHNICIAN.
[2021-09-19 15:08] VITALS: BP 137/68
--- NOTE | 2021-09-19 18:34 | NUR ---
ASSUMED PATIENT CARE AT 0700. TOLERATED WALKING WITH 3L/NC. PROGRESSING TOWARDS POC GOALS.
[2021-09-19 20:28] VITALS: BP 143/57
[2021-09-20 04:53] VITALS: BP 140/65
--- NOTE | 2021-09-20 05:30 | NUR ---
PT HAS NO C/O OF PAIN, NAUSEA/VOMITTING. PT C/O THAT SHE WAS UNABLE TO GET SLEEP. NOTIFED SCHEDULE CLERK AND RECEIVED ORDERS FOR MELATONIN PRN. CURRENTLY ON 3L O2 NC. VSS AFEBRILE. CONTINUE WITH PLAN OF CARE.
[2021-09-20 08:05] VITALS: BP 149/60
--- NOTE | 2021-09-20 09:12 | NUR ---
AUTHORIZATION FOR ACUTE REHAB STAY DENIED BY INSURANCE. PEER TO PEER COMPLETED AND DENIAL UPHELD. REASON STATED BY INSURANCE WAS THAT PATIENT DOES NOT MEET ACUTE REHAB CRITERIA AND THAT CARE CAN BE SAFELY DELIVERED FOR PATIENT AT A LOWER LEVEL. FAST APPEAL NUMBER [phone]. FAX [phone]. AUTH REQUEST NUMBER [id number]. REFERENCE NUMBER FOR CALL REGARDING DENIAL [id number]. D/C MANAGER PROGRAM/UM INFORMED OF ABOVE. THANK YOU FOR THIS REFERRAL.
[2021-09-20] MEDS ORDERED: PEPCID20 MG PO (10:49)
[2021-09-20] MEDS ORDERED: VITAMIN B-1100 M2 PO (10:49)
[2021-09-20] MEDS ORDERED: PREDNISONE 10 M10 M1 PO (10:49)
[2021-09-20] MEDS ORDERED: ELIQUIS5 MG PO (10:49)
[2021-09-20] MEDS ORDERED: MUCINEX600 MG PO (10:49)
[2021-09-20] MEDS ORDERED: VITAMIN D325 MC2 PO (10:49)
[2021-09-20] MEDS ORDERED: VITAMINC500 PO (10:49)
[2021-09-20] MEDS ORDERED: MIRALAX17 GM PO (10:49)
[2021-09-20] MEDS ORDERED: ZINC SULFATE50 MG PO (10:49)
--- NOTE | 2021-09-20 11:18 | NUR ---
PATIENT IS ALERT AND ORIENTED X 4 THIS SHIFT. SHE IS ON 2L'S OF OXYGEN. HER LUNG SOUNDS ARE DIMINISHED. PATIENT IS MED SURGE/ TELE AND SHE HAS BEEN SINUS RHYTHM THIS SHIFT. PATIENT HAS BEEN UP ADLIB TO THE TOILET AND HAS BEEN CONTINENT OF BOTH BOWEL AND BLADDER THIS SHIFT. PATIENT HAS AN IV IN HER LEFT AC THAT IS PATENT AND SALINE LOCKED. PATIENT HAS AN IV IN HER RIGHT FOREARM THAT IS PATENT AND SALINE LOCKED. PATIENT WILL CONTINU TO BE MONITORED.
[2021-09-20] MEDS ORDERED: NEBULIZER MISCELL (11:42)
[2021-09-20 13:49] LABS: CALCIUM 8.8 mg/dL (8.5-10.1); CREATININE 1.4 mg/dL (0.6-1.0)
[2021-09-20 13:52] LABS: ABSOLUTE NEUTROPHILS 18.7 thou/uL (1.4-8.2); BASOPHILS 0.1 % (0.0-2.0); HEMATOCRIT 31.7 % (37.0-47.0); HEMOGLOBIN 10.5 gm/dL (12.0-15.0); MCH 32.1 pg (26.0-34.0); MCHC 33.1 g/dL (28.0-37.0); MCV 97.1 fL (80.0-100.0); MONOCYTES 1.7 % (1.0-8.0); PLATELET COUNT 211 thou/uL (150-400); POLYS 96.2 % (36.0-66.0); RBC 3.26 mil/uL (4.20-5.00); RDW 14.6 % (10.5-14.5); WBC 19.5 thou/uL (4.0-11.0)
--- NOTE | 2021-09-20 14:32 | NUR ---
HARRY reviewed chart and spoke with nursing and attending physician. Pt remains in Enhanced Isolation due to COVID. Pt is afebrile and on 2L of O2. Pt is on IV steroids. HARRY notified that insurance denied admission to in acute rehab after peer to peer review was completed. HARRY spoke with pt via phone to provide update and discuss discharge disposition: SNF v. home with HH/Home O2. Pt states she prefers to go home with HH/Home O2. HARRY explained services provided by HH/Home O2. Pt verbalized understanding and is agreeable with plan. Options for DME/HH provider discussed. No preference voiced. Pt's home address and phone number confirmed. HARRY spoke with pt's dtr, Nu, via phone to provide update. Nu is agreeable with discharge plan. No preference of providers voiced. HARRY notified [facility] liaison, who can accept pt on service. HARRY updated [facility] liaison regarding home O2 referral. Will need a rest/exercise oximetry completed prior to discharge. HARRY is following to assist as needed with discharge planning.
[2021-09-20 16:49] VITALS: BP 140/71
[2021-09-20 19:03] VITALS: BP 141/80
[2021-09-21 04:10] VITALS: BP 124/56
--- NOTE | 2021-09-21 05:23 | NUR ---
PT ALERT & ORIENTED X4. NO C/O OF PAIN, NAUSEA/VOMITTING. PT UNABLE TO SLEEP. ADMINISTERED MELATONIN PRN. NO RELIEF NOTED. NOTIFIED [employer] AND RECEIVED ORDERS FOR ONETIME DOSE OF BENADRYL-THIS WORKED. VSS AFEBRILE. PLAN IS TO D/C TODAY WITH HH. ALL NEEDS ARE MET AT THIS TIME.
[2021-09-21 07:43] VITALS: BP 169/81
[2021-09-21 11:29] VITALS: BP 169/81
[2021-09-21] MEDS ORDERED: MELATONIN5 M1 PO (12:36)
[2021-09-21] MEDS ORDERED: METOPROLOL SUCC25 M1 PO (12:36)
[2021-09-21] MEDS ORDERED: TYLENOL EXTRA500 MG PO (12:36)
[2021-09-21] MEDS ORDERED: GLYBURIDE 1.21.25 M1 PO (12:36)
[2021-09-21] MEDS ORDERED: NORVASC5 MG PO (12:36)
[2021-09-21 13:21] VITALS: BP 169/81
[2021-09-21 13:24] VITALS: BP 169/81
[2021-09-21 13:25] VITALS: BP 169/81
--- NOTE | 2021-09-21 13:50 | NUR ---
DISCHARGE NOTE: HARRY reviewed chart and spoke with nursing and attending physician. Pt is medically stable for discharge home today with HH and Home O2. Enhanced Isolation precautions have been discontinued. Pt will need 3L of O2 continuously. Testing and script faxed to [facility]. Pt also needing a home nebulizer. Script also faxed to [facility]. SW notified [facility] liaison. Portable O2 tank provided and left at 3W nurses station. SW notified [facility] liaison of pt's discharge. HARRY spoke with pt via phone to discuss discharge plan. Pt is aware and in agreement with plan. Pt's son to provide transportation home. HARRY spoke with pt's dtr, Nu, via phone to provide update and discuss discharge. All questions answered. Contact info for and [facility]ardo placed in pt's discharge summary. No additional SW needs identified at this time. SW is available to assist should needs arise.
--- NOTE | 2021-09-21 14:23 | NUR ---
PATIENT HAS BEEN ALERT AND ORIENTED X4 THIS SHIFT. SHE IS ON 3L OF OXYGEN. PATIENT HAS BEEN MED-SURGE/ TELE AND RUNNING SINUS RHYTHM THIS SHIFT. PATIENT HAS BEEN UP TO THE TOILET AND CONTINENT OF BOTH BOWEL AND BLADDER. PATIENTS LAST BM WAS 09/20/2021. PATIENT HAS BRUISING ON THE LEFT SIDE OF HER ABDOMEN AND HER RIGHT HAND. PATIENT HAS TWO IV'S. ONE ON HER RIGHT FOREARM WHICH WAS FLUSHED AND PATENT. PATIENTS SECOND IV IS IN HER LEFT AC. IV WAS FLUSHED AND PATENT. PATIENTS IV'S WERE BOTH DISCONTINUED AND PATIENT WAS TAKEN OFF OF TELE. PATIENT WAS GIVEN DISCHARGE INFORMATION EDUCATED ON MEDICATIONS AND FOLLOW INSTRUCTIONS. PATIENTS SON WILL AT FACILITY AROUND 1600. PATIENT WILL CONTINUE TO BE MONITORED.
--- NOTE | 2021-09-21 16:22 | NUR ---
PATIENT IS DISCHARGED FROM THE FLOOR AT 1622. PATIENTS IV'S WERE DISCONTINUED. BELONGINGS ARE WITH PATIENT. PATIENT IS ESCORTED TO EMERGENCY ROOM DOOR BY STAFF. SON IS TAKING PATIENT HOME.
== END 2021-09-21 16:31 | disposition home health service (06) | DRG 871 ==
LOC: ER 12:11 → 3W 13:45 → EROBS 13:45 → 3W 14:39
PROVIDERS: Hospitalist; Internal Medicine; Nurse Practitioner; Pediatrics; Physician Assistant; Specialist; ADMIT Hospitalist; ATTEND Hospitalist
DX: A41.9 Sepsis, unspecified organism (principal); U07.1 COVID-19; J96.01 Acute respiratory failure with hypoxia; J12.82 Pneumonia due to coronavirus disease 2019; N17.0 Acute kidney failure with tubular necrosis; E44.0 Moderate protein-calorie malnutrition; E87.0 Hyperosmolality and hypernatremia; D68.59 Other primary thrombophilia; E66.9 Obesity, unspecified; Z60.2 Problems related to living alone; R65.20 Severe sepsis without septic shock; N18.30 Chronic kidney disease, stage 3 unspecified; I12.9 Hypertensive chronic kidney disease with stage 1 through stage 4 chronic kidney disease, or unspecified chronic kidney disease; E11.22 Type 2 diabetes mellitus with diabetic chronic kidney disease; M54.9 Dorsalgia, unspecified; G89.29 Other chronic pain; R26.89 Other abnormalities of gait and mobility; D63.8 Anemia in other chronic diseases classified elsewhere; Z68.35 Body mass index [BMI] 35.0-35.9, adult; Z79.899 Other long term (current) drug therapy
CPT/HCPCS: 10879